=== PATIENT | male | born 1995 ===

== ENCOUNTER → 2023-12-06 | Outpatient (CLI) | payer OTHER ==
[~2023-12-06] MED LIST: Atarax10 MG PO
[2023-12-09 07:31] LABS: HEPATITIS B SURFACE ANTIBODY 133.41 IU/L
[2023-12-09 09:58] LABS: HEPATITIS B SURFACE ANTIGEN Negative (Negative)
[2023-12-09 12:12] LABS: HIV 1,2 COMBO ANTIGEN/ANTIBODY Negative (Negative)
[2023-12-09 17:12] LABS: HCV QNT BY NAAT (IU/ML) Not Detected; HCV QNT BY NAAT (LOG IU/ML) Not Detected; HCV QNT BY NAAT INTERP Not Detected (Not Detected)
== END | disposition home or self-care (01) ==
LOC: LAB 18:13 → LAB SHORT 18:13
PROVIDERS: Physician Assistant Medical
DX: Z20.9 Contact with and (suspected) exposure to unspecified communicable disease (principal)
CPT/HCPCS: 84460; 87340; 87389; 87522

== ENCOUNTER → 2024-03-28 | Outpatient (CLI) | payer OTHER ==
[2024-03-31 10:27] LABS: HIV 1,2 COMBO ANTIGEN/ANTIBODY Negative (Negative)
[2024-03-31 17:07] LABS: HCV QNT BY NAAT (IU/ML) Not Detected; HCV QNT BY NAAT (LOG IU/ML) Not Detected; HCV QNT BY NAAT INTERP Not Detected (Not Detected)
== END ==
LOC: LAB SHORT 17:32 → LAB 17:32
PROVIDERS: Chiropractor
DX: Z20.9 Contact with and (suspected) exposure to unspecified communicable disease (principal)
CPT/HCPCS: 87389; 87522

== ENCOUNTER 2024-05-18 06:50 | Day surgery (SDC) | payer OTHER ==
[~2024-05-18] VITALS: Ht 180.3 cm; Wt 107.5 kg
[2024-05-18] MEDS ORDERED: ATOM40 (07:09)
[2024-05-18] MEDS ORDERED: FAMO20 (07:09)
[2024-05-18] MEDS ORDERED: Flonase 0.05% N16 GM (07:10)
[2024-05-18] MEDS ORDERED: ZYRTEC10 M3 (07:10)
[2024-05-18] MEDS ORDERED: CITRATE OF MAG (07:11)
[2024-05-18] MEDS ORDERED: AZELASTINE137 MCG/01 (07:12)
[2024-05-18] MEDS ORDERED: Lactated Ringer's 1,000 ML IV ONE ×2 (07:32→07:43)
[2024-05-18] MEDS ORDERED: propofoL 50 ML IV ONE (07:37)
[2024-05-18] MEDS ORDERED: Lidocaine HCl 4% 5 ML SDA ONE (07:41)
[2024-05-18 08:55] VITALS: BP 126/82
== END 2024-05-18 08:53 | disposition home or self-care (01) ==
LOC: ORSCSDS 06:50
PROVIDERS: Specialist
PROC: 0DB98ZX Excision of Duodenum, Via Natural or Artificial Opening Endoscopic, Diagnostic (ICD-10-PCS; principal; 2024-05-18 08:00)
PROC: 0DB68ZX Excision of Stomach, Via Natural or Artificial Opening Endoscopic, Diagnostic (ICD-10-PCS; principal; 2024-05-18 08:00)
PROC: 0DB58ZX Excision of Esophagus, Via Natural or Artificial Opening Endoscopic, Diagnostic (ICD-10-PCS; principal; 2024-05-18 08:00)
DX: K21.9 Gastro-esophageal reflux disease without esophagitis (principal); R11.2 Nausea with vomiting, unspecified; K29.70 Gastritis, unspecified, without bleeding; K22.10 Ulcer of esophagus without bleeding; G47.33 Obstructive sleep apnea (adult) (pediatric); F32.A Depression, unspecified; F41.9 Anxiety disorder, unspecified; I10 Essential (primary) hypertension; E66.9 Obesity, unspecified; Z68.33 Body mass index [BMI] 33.0-33.9, adult; Z79.899 Other long term (current) drug therapy
CPT/HCPCS: 88305; 88342; J2003; J2704; J7120

== ENCOUNTER → 2024-06-05 | Outpatient (CLI) | payer OTHER ==
[~2024-06-05] MED LIST changes: +ATOM40; +AZELASTINE137 MCG/01; +CITRATE OF MAG; +FAMO20; +Flonase 0.05% N16 GM; +ZYRTEC10 M3
[2024-06-07 20:10] LABS: HIV 1,2 COMBO ANTIGEN/ANTIBODY Negative (Negative)
[2024-06-08 11:45] LABS: HEPATITIS B SURFACE ANTIBODY 135.74 IU/L
[2024-06-08 12:00] LABS: HEPATITIS B SURFACE ANTIGEN Negative (Negative)
[2024-06-08 20:01] LABS: HCV QNT BY NAAT (IU/ML) Not Detected; HCV QNT BY NAAT (LOG IU/ML) Not Detected; HCV QNT BY NAAT INTERP Not Detected (Not Detected)
== END | disposition home or self-care (01) ==
LOC: LAB SHORT 18:24 → LAB 18:24
PROVIDERS: Family Medicine
DX: Z20.9 Contact with and (suspected) exposure to unspecified communicable disease (principal)
CPT/HCPCS: 84460; 87340; 87389; 87522